=== PATIENT | male | born 1935 | race Caucasian/White ===

== ENCOUNTER → 2019-04-18 | Outpatient (CLI) | payer MEDICARE, BC ==
[2019-04-18 15:43] LABS: POTASSIUM 4.3 MMOL/L (3.6-5.0)
[2019-04-18 15:44] LABS: ALBUMIN 4.2 GM/DL (3.2-4.5); CALCIUM 9.3 MG/DL (8.5-10.1); CREATININE SERUM 2.12 MG/DL (0.60-1.30)
[2019-04-18 20:56] LABS: PHOSPHORUS 4.3 MG/DL (2.3-4.7)
== END ==
LOC: LAB FS 14:16
DX: I12.9 Hypertensive chronic kidney disease with stage 1 through stage 4 chronic kidney disease, or unspecified chronic kidney disease (principal); N18.3 Chronic kidney disease, stage 3 (moderate)
CPT/HCPCS: 36415; 80069; 82570; 84156